=== PATIENT | female | born 1945 | race Caucasian/White ===

== ENCOUNTER 2021-05-30 10:59 | Outpatient (REF) | payer BC, SELFPAY ==
[2021-05-30 14:51] LABS: Influenza A PCR NEGATIVE (Negative); Influenza B PCR NEGATIVE (Negative); Resp Syncy Virus RNA Qual PCR NEGATIVE (Negative); SARS COV2 PCR INHOUSE NEGATIVE (Negative)
== END 2021-05-30 11:00 | disposition home or self-care (01) ==
LOC: HO.LAB 10:59
PROVIDERS: Visit Provider Family Medicine
DX: Z20.822 Contact with and (suspected) exposure to COVID-19 (principal); B34.9 Viral infection, unspecified
CPT/HCPCS: 0241U; 36415

== ENCOUNTER 2025-03-31 08:17 | Outpatient (REF) | payer BC, SELFPAY ==
[2025-03-31 11:26] LABS: Hematocrit 39.9 % (37.0-47.0); Hemoglobin 12.9 g/dl (12.0-16.0); Mean Corpuscular HGB Conc 32.3 g/dl (31.0-35.0); Mean Corpuscular Hemoglobin 30.0 pg (27.0-33.0); Mean Corpuscular Volume 92.8 fL (80.0-98.0); NRBC Abs Auto 0.000 X10*3/uL (0.0-0.012); NRBC Pct Auto 0.0 /100WBC (0.0-0.2); Platelet Count 283 X10*3/uL (160-400); Red Blood Count 4.30 X10*6/uL (4.20-5.50); White Blood Count 5.0 X10*3/uL (4.8-10.8)
[2025-03-31 11:55] LABS: Microalbum/Creatinine Ratio Ur 20.8 ug/mg cr (<30)
[2025-03-31 11:59] LABS: Alanine Aminotransferase 26 U/L (0-31); Albumin Level 4.4 g/dL (3.5-5.0); Alkaline Phosphatase 65 U/L (39-117); Anion Gap 13 (12-20); Aspartate Amino Transferase 31 U/L (5-31); Blood Urea Nitrogen 18 mg/dL (9-16); Calcium 10.1 mg/dL (8.4-10.2); Carbon Dioxide 24 mmol/L (22-29); Chloride 112 mmol/L (96-108); Cholesterol 123 mg/dL (<200); Estimated Glomerular Filt Rate 50; HDL Cholesterol 38 mg/dL (>40); Potassium 3.8 mmol/L (3.3-5.1); Sodium 145 mmol/L (135-145); Total Protein 7.0 g/dL (6.5-8.0); Triglycerides 152 mg/dL (<150)
[2025-03-31 12:26] LABS: Folate 17.5 ng/mL (> or = 4.0); Vitamin B12 990 pg/mL (200-900)
== END 2025-03-31 08:18 | disposition home or self-care (01) ==
LOC: HO.WFDLDS 08:17
PROVIDERS: PCP Nurse Practitioner Family; Visit Provider Nurse Practitioner Family
DX: Z76.89 Persons encountering health services in other specified circumstances (principal); I25.10 Atherosclerotic heart disease of native coronary artery without angina pectoris; I12.9 Hypertensive chronic kidney disease with stage 1 through stage 4 chronic kidney disease, or unspecified chronic kidney disease; N18.31 Chronic kidney disease, stage 3a; H61.23 Impacted cerumen, bilateral; J45.20 Mild intermittent asthma, uncomplicated; E66.9 Obesity, unspecified; K21.9 Gastro-esophageal reflux disease without esophagitis; M54.42 Lumbago with sciatica, left side; M54.41 Lumbago with sciatica, right side; G89.29 Other chronic pain; J06.9 Acute upper respiratory infection, unspecified; Z95.5 Presence of coronary angioplasty implant and graft; Z87.11 Personal history of peptic ulcer disease; Z68.30 Body mass index [BMI] 30.0-30.9, adult
CPT/HCPCS: 36415; 69209; 80053; 80061; 82043; 82306; 82570; 82607; 82746; 84443; 85027; 96127

== ENCOUNTER 2025-03-31 08:17 | Outpatient (AMB) | payer BC, SELFPAY ==
--- NOTE | 2025-03-31 08:19 | MHC.PC.OV ---
Vital Signs 03/31/25 08:29 Height 5 ft 1 in Weight 160 lb 2 oz BMI 30.3 BP 138/72 Blood Pressure Location Rt brachial Position Sitting Respiration 13 Pulse 103 H Pulse Source Pulse Oximeter Temp 97.6 F Temp Source Oral Pulse Oximetry (%) 98 Oxygen Delivery Method Room Air Intake Visit Reasons: BMET EST CARE Intake Note: New patient to establish care. Patient c/o coughing x 1 week. Patient also needs refill on meds. 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 Required: No Allergies No Known Allergies Allergy (Verified 03/31/25 08:47) Medication List - Last Reviewed 03/31/25 by Rich Jameson MA albuterol sulfate 90 mcg/actuation 2 puffs inhalation QID PRN aspirin 81 mg PO DAILY atorvastatin 80 mg PO BEDTIME beclomethasone dipropionate 40 mcg/actuation (Qvar RediHaler) inhalation gabapentin 300 mg PO DAILY lansoprazole 30 mg PO DAILY metoprolol succinate ER 200 mg PO DAILY montelukast 10 mg PO QPM Tobacco use date assessed: 03/31/25 Fall risk assessment: No Falls in past year Last assessed Fall Risk: 03/31/25 Dental Screening Dental Screen Date: 03/31/25 Did you have a dental visit in the last 12 months?: Yes Did you have a dental problem in the last 6 months where you did not have access to dental care?: No Was dental information given to patient?: Patient has dentist HPI HPI Comments History of Present Illness Details 79 y/o f with HLD, asthma, chronic low back pain, CKD3, CAD, GERD, hx of PUD, HTN SurgHx: s/p cardiac stent (Lcx and OM1 2011) , parathyroidectomy, appy, tonsillectomy, jeffrey , bilat cataracts, FHx: Mom stroke; Dad CHF, SocHx: in 2023; lives w/ son Health Maintenance: See scanned preventative medicine assessment with personalized health plan and screening schedule. Colon: declined, last 2017 Mammo DEXA PAP Vaccines: tdap 2019 AAA screen EKG: [place] of Care: Cards Dr [place]ente, annual visits Optho Visual Acuity: Hearing Screening: ACP: Dietary/Nutrition/Exercise Edu provided: Y History of Present Illness The patient is an 79-year-old female presenting to est care, coming from [facility]. Records rec'd and reviewed. URI 1 week, asthma cough, mucous, sore throat w/ painful swallowing throat is now better but cont shake the cough using inhalers short lived relief w/ [employer] for the first few days Denies fever, chills, ear pain. Bilat ears feel blocked. Using debrox. Does her best to care for this at home. Asthma: - Managed with Albuterol and Qvar; exacerbation noted; taking Qvar 1 puff at HS and not bid as it causes drying of her mouth Essential Hypertension: - Controlled with Metoprolol; stable condition Coronary Artery Disease: - Managed post-coronary stenting with Atorvastatin and Aspirin GERD: - Controlled with Lansoprazole; no current issues Obesity: - BMI of 30; stable weight discussed Chronic back and lower ext pain managed on Gabapentin Review of Systems - Respiratory: Reports persistent asthmatic cough, sore throat initially. - Ear/Nose/Throat: Reports sore throat improved; difficulty swallowing initially. - Gastrointestinal: Denies new or worsening GERD symptoms. - Musculoskeletal: Denies new or worsening back pain; reports previous back issues with some radicular pain. - General: Reports recent night sweats, possibly related to fever. Physical Exam General: Well developed, well nourished, in no acute distress. Appears stated age. Obesity with a BMI of 30. Head: Normocephalic, atraumatic. Some ear wax present, will flush out. Eyes: Pupils are equal, round and reactive to light and accommodation. Conjunctivae are clear. Vision grossly normal. Lungs: Clear to auscultation bilaterally. No rales, rhonchi or wheeze noted. Good air flow in all grimes. Cough present. Heart: Regular rate and rhythm. No murmurs, click, rubs or gallops are noted. Musculoskeletal: Joints are nontender, without swelling, redness, or effusions. Pulses: Peripheral pulses are equal and palpable bilaterally. Extremities: No clubbing, cyanosis nor edema is noted. Psych: Mood and affect appropriate. Results Pending Discussion Notes I discussed the management of the patient's persistent cough, likely viral in nature, and offered a low dose of prednisone to help reduce airway inflammation. We reviewed the use of her inhalers and advised increasing the Qvar dosage to two puffs at night to better manage asthma symptoms. Albuterol should be used preemptively before a coughing episode. Discussed the importance of getting the flu vaccine. The patient's cerumen impaction will be flushed today, and her next steps involve checking the labs upon departure. No antibiotics are currently needed as the lungs are clear, and a viral etiology is most likely. We reviewed medication refills, including atorvastatin, which will be managed through [facility]. Follow-up in six to eight weeks for a Medicare wellness visit was scheduled, and the importance of maintaining current cardiac follow-ups was discussed. Emotional support for the loss of her and role of her sons living with her was acknowledged, adjusting socially to changes was explored briefly. Patient was given time to ask questions. All questions were answered to their satisfaction. Assessment and Plan 1. Asthma w/ exacerbation - Start prednisone for viral cough; use Albuterol before coughing 2. Asthma - Increase Qvar to two puffs/night; review inhaler use 3. Essential Hypertension - Continue Metoprolol; stable condition 4. Coronary Artery Disease - Continue Atorvastatin, Aspirin; maintain follow-up 5. GERD - Continue Lansoprazole; effective management 6. Obesity - No new interventions noted 7. Impaction of Cerumen - Flushing today 8. Chronic back pain- cont gabapentin Patient Instructions - Take prednisone each morning with food for 5 days. - Use Albuterol before a cough; not to wait for a coughing fit. - Use two puffs of Qvar at night. 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 - Get a flu shot once fever-free. - Follow up in six weeks for a wellness visit. - See the lab before leaving for blood work today. Consent Patient was informed and verbally consented to the use of an ambient scribe for clinic note documentation during this visit. Total time spent caring for the patient today was 45 minutes. This includes time spent before the visit reviewing the chart, time spent during the visit, and time spent after the visit on documentation, reviewing laboratory results, diagnostic imaging, medications, performing a medically necessary evaluation, counseling on diagnoses, care coordination, ordering appropriate tests, ordering appropriate medications, review of tests performed by other providers, reporting test results with the patient, communication with other healthcare providers. [facility] Medical History Headache Anxiety Spine disorder Arthritis High cholesterol Allergic Sinusitis Asthma Hx of mammogram (~2024) Surgical History H/O parathyroidectomy H/O angioplasty H/O section Hx of cholecystectomy History of appendectomy Hx of tonsillectomy Hx of colonoscopy (~2015) Family History (Updated 03/31/25 @ 09:25 by Rich Jameson MA) Father Asthma Mother Cardiovascular disease Sister Cancer Thyroid disorder Brother Cancer Thyroid disorder Social History (Updated 03/31/25 @ 08:29 by Rich Jameson MA) Household Members: Children Both parents involved: No Caregiver staying overnight: No Housing: House Are you a primary college and career counselor to a significant other at home: No Do you presently have visiting nurse or other home services: No 75 years or older and lives alone: No Alcohol intake: current Alcohol intake frequency: a few times a month Patient Tobacco Use Status: Never used Tobacco e-Cigarette/Vaping Use: Never Used Second Hand Smoke Exposure: No service: No Current occupational status: retired Current occupational exposures/hazards: No Cognitive needs: No Hearing needs: No Vision needs: Yes (implants) Questionnaire PHQ-9 Over the last 2 weeks, how often have you been bothered by any of the following problems? 1. Little interest or pleasure in doing things: more than half the days 2. Feeling down, depressed, or hopeless: not at all 3. Trouble falling or staying asleep, or sleeping too much: not at all 4. Feeling tired or having little energy: several days 5. Poor appetite or overeating: several days 6. Feeling bad about yourself - or that you are a failure or have let yourself or your family down: not at all 7. Trouble concentrating on things, such as reading the newspaper or watching television: not at all 8. Moving or speaking so slowly that other people could have noticed. Or the opposite - being so fidgety or restless that you have been moving around a lot more than usual: not at all 9. Thoughts that you would be better off or of hurting yourself in some way: not at all Total score: 4 Depression Screening Interpretation: Negative Depression Screening Done: Yes 76963 - PHQ-9 Billing: Yes Source: Developed by Drs. Alex Ko, Jo Ortega, Malachi Sanon and colleagues, with an educational lydia from [email or web address]. Thrive Questionnaire Date Thrive assessed: 03/31/25 I am a: Patient What is your living situation today?: I have a steady place to live Within the past 12 months, did the food you bought not last and you didn't have the money to get more?: Never true Within the past 12 months, did you worry whether your food would run out before you got money to buy more?: Never true Do you have trouble paying for medicines?: No Do you have trouble getting transportation to medical appointments?: No Do you have trouble paying your heating and electricity bill?: No Do you have trouble taking care of your child, family member or friend?: No Do you have trouble with day-to-day activities such as bathing, preparing meals, shopping, managing finances, etc.?: No Are you currently unemployed and looking for a job?: No Are you interested in more education?: No Please select the resources that you would like help with: None Currently or been in a relationship where the following occur: No concerns reported THRIVE Score: 0 AUDIT C Alcohol Use Questionnaire (AUDIT-C) 1. How often do you have a drink containing alcohol?: Never 2. How many drinks containing alcohol do you have on a typical day when you are drinking?: 1 or 2 3. How often do you have six or more drinks on one occasion?: Never Total Score: 0 Score Reviewed/Action Taken: Yes TEMITOPE-7 AMB Questionnaire TEMITOPE-7 Date TEMITOPE - 7 assessed: 03/31/25 Feeling nervous, anxious, or on edge: 0 = Not at all Not being able to stop or control worryin = Not at all Worrying too much about different things: 0 = Not at all Trouble relaxin = Not at all Being so restless that it is hard to sit still: 0 = Not at all Becoming easily annoyed or irritable: 0 = Not at all Feeling afraid as if something awful might happen: 0 = Not at all Total TEMITOPE-7 score (0-4 normal; 5-9 mild; 10-14 moderate; 15-21 severe): 0 Source: Developed by Drs. Alex Ko, Jo Ortega, Malachi Sanon and colleagues, with an educational lydia from [email or web address]. TEMITOPE-7 Assessment Billing TEMITOPE-7 Assessment Tool: TEMITOPE-7 Assessment 21005 Physical exam (Primary Care) Vital Signs: Last Vital Signs Temp 97.6 F 03/31/25 08:29 Pulse 103 H 03/31/25 08:29 Resp 13 03/31/25 08:29 BP 138/72 03/31/25 08:29 Pulse Ox 98 03/31/25 08:29 Oxygen Delivery Method Room Air 03/31/25 08:29 BMI result Body Mass Index 30.3 BMI Assessment/Plan discussion: High BMI High, discussed plan: lifestyle Tobacco/Smoking Status: Tobacco use Status Tobacco use date assessed 03/31/25 03/31/25 08:23 Patient Tobacco Use Status Never used Tobacco 03/31/25 08:29 e-Cigarette/Vaping Use Never Used 03/31/25 08:29 PHQ-9: PHQ-9 Score PHQ-9: Total score 4 03/31/25 08:23 Depression Screening Interpretation: Negative Thrive Assessment: Date of Thrive Assessment Date Thrive assessed 03/31/25 03/31/25 08:23 Currently or been in a relationship where the following occur: No concerns reported Office Procedures Cerumen Removal From which ear canal was the cerumen removed: bilateral Removal: irrigation Notes: patient tolerated procedure well, no complications and ear canal clear 80683-Kqo Irrigation/Lavage Coding Level of Care Code New Pt Level 4 (83653) Complex EM visit Add On G2211 Diagnoses Encounter to establish care with new provider Z76.89 Obesity (BMI 30-39.9) E66.9 Coronary artery disease involving [place] coronary artery of [place] heart without angina pectoris I25.10 Associated angina: without angina Coronary Disease-Associated Artery/Lesion type: [place] artery [place] vs. transplanted heart: [place] heart Stage 3a chronic kidney disease N18.31 Chronic kidney disease stage 3 subtype: stage 3a (GFR 45-59) Mild intermittent asthma without complication J45.20 Asthma complication type: uncomplicated Gastroesophageal reflux disease without esophagitis K21.9 Esophagitis presence: without esophagitis History of peptic ulcer disease Z87.11 Primary hypertension I10 Hypertension type: primary hypertension Chronic bilateral low back pain with bilateral sciatica M54.42; M54.41; G89.29 Back pain laterality: bilateral Sciatica laterality: bilateral sciatica Sciatica presence: with sciatica Coronary artery disease status post coronary stent insertion I25.10; Z95.5 Impacted cerumen of both ears H61.23 Viral URI with cough J06.9 CPT Codes Office Procedure - CPT: 60261-Gvs Irrigation/Lavage ([id number]) Additional Codes PHQ-9 - 43001 - PHQ-9 Billing: Yes ([id number]) TEMITOPE-7 Assessment Billing - TEMITOPE-7 Assessment Tool: TEMITOPE-7 Assessment 58861 ([id number]) Assessment & Plan Assessment & Plan (1) Encounter to establish care with new provider: Code(s): Z76.89 - Persons encountering health services in other specified circumstances (2) Obesity (BMI 30-39.9): Code(s): E66.9 - Obesity, unspecified Category: Medical (3) CAD (coronary artery disease): Code(s): I25.10 - Atherosclerotic heart disease of [place] coronary artery without angina pectoris Category: Medical Qualifiers: Associated angina: without angina Coronary Disease-Associated Artery/Lesion type: [place] artery [place] vs. transplanted heart: [place] heart Qualified Code(s): I25.10 - Atherosclerotic heart disease of [place] coronary artery without angina pectoris (4) CKD (chronic kidney disease) stage 3, GFR 30-59 ml/min: Code(s): N18.30 - Chronic kidney disease, stage 3 unspecified Category: Medical Qualifiers: Chronic kidney disease stage 3 subtype: stage 3a (GFR 45-59) Qualified Code(s): N18.31 - Chronic kidney disease, stage 3a (5) Mild intermittent asthma: Code(s): J45.20 - Mild intermittent asthma, uncomplicated Category: Medical Qualifiers: Asthma complication type: uncomplicated Qualified Code(s): J45.20 - Mild intermittent asthma, uncomplicated (6) GERD (gastroesophageal reflux disease): Code(s): K21.9 - Gastro-esophageal reflux disease without esophagitis Category: Medical Qualifiers: Esophagitis presence: without esophagitis Qualified Code(s): K21.9 - Gastro-esophageal reflux disease without esophagitis (7) History of peptic ulcer disease: Code(s): Z87.11 - Personal history of peptic ulcer disease Category: Medical (8) HTN (hypertension): Code(s): I10 - Essential (primary) hypertension Category: Medical Qualifiers: Hypertension type: primary hypertension Qualified Code(s): I10 - Essential (primary) hypertension (9) Chronic low back pain: Code(s): M54.50 - Low back pain, unspecified; G89.29 - Other chronic pain Category: Medical Qualifiers: Back pain laterality: bilateral Sciatica laterality: bilateral sciatica Sciatica presence: with sciatica Qualified Code(s): M54.42 - Lumbago with sciatica, left side; M54.41 - Lumbago with sciatica, right side; G89.29 - Other chronic pain (10) Coronary artery disease status post coronary stent insertion: Comment: s/p cardiac stent (Lcx and OM1 2011) , Code(s): I25.10 - Atherosclerotic heart disease of [place] coronary artery without angina pectoris; Z95.5 - Presence of coronary angioplasty implant and graft Category: Surgical (11) Impacted cerumen of both ears: Code(s): H61.23 - Impacted cerumen, bilateral Category: Medical (12) Viral URI with cough: Code(s): J06.9 - Acute upper respiratory infection, unspecified Plan , Orders: Orders Comprehensive Met. Panel Today I10 - Essential (primary) hypertension, I25.10 - Atherosclerotic heart disease of [place] coronary artery without angina pectoris, N18.30 - Chronic kidney disease, stage 3 unspecified Lipid Panel Today I10 - Essential (primary) hypertension, I25.10 - Atherosclerotic heart disease of [place] coronary artery without angina pectoris, N18.30 - Chronic kidney disease, stage 3 unspecified Complete Blood Count no Diff Today I10 - Essential (primary) hypertension, I25.10 - Atherosclerotic heart disease of [place] coronary artery without angina pectoris, N18.30 - Chronic kidney disease, stage 3 unspecified Microalbumin, Random (w Creat) Today I10 - Essential (primary) hypertension, I25.10 - Atherosclerotic heart disease of [place] coronary artery without angina pectoris, N18.30 - Chronic kidney disease, stage 3 unspecified TSH reflex Free T4 Today I10 - Essential (primary) hypertension, I25.10 - Atherosclerotic heart disease of [place] coronary artery without angina pectoris, N18.30 - Chronic kidney disease, stage 3 unspecified Vitamin B12 and Folate Today I10 - Essential (primary) hypertension, I25.10 - Atherosclerotic heart disease of [place] coronary artery without angina pectoris, N18.30 - Chronic kidney disease, stage 3 unspecified Vitamin D 25-OH Total Today I10 - Essential (primary) hypertension, I25.10 - Atherosclerotic heart disease of [place] coronary artery without angina pectoris, N18.30 - Chronic kidney disease, stage 3 unspecified Medications: New albuterol sulfate 90 mcg/actuation 2 puffs inhalation QID PRN 6.7 grams 1RF wheezing lansoprazole 30 mg PO DAILY 90 caps 2RF beclomethasone dipropionate 40 mcg/actuation (Qvar RediHaler) 2 inhalations inhalation BEDTIME 10.6 grams 12RF atorvastatin 80 mg PO BEDTIME 90 tabs 2RF gabapentin 300 mg PO DAILY 90 caps 2RF metoprolol succinate ER 200 mg PO DAILY 90 tabs 2RF montelukast 10 mg PO QPM 90 tabs 2RF prednisone 5 mg PO DAILY 5 tabs 0RF Patient Instructions: Walk-In Care (Urgent Care): We Make it Easy Walk-in for urgent medical issues such as: ? Seasonal Allergies ? Insect Bites ? Cough ? Diarrhea ? Acute Asthma Attacks ? Back, Knee or Joint Pain ? Ear Infection ? Fever without a Rash ? Headaches ? Nausea ? [place] [facility], Rash or Skin Irritation ? Sore Throat ? Sports Physicals ? Vomiting Most insurances are accepted. Patients do not need to be part of the [facility] to seek care at the walk-in clinic. Locations [address] [place], [place] Open Saturday through Saturday 8am-5pm *Hours may vary due to staffing availability. To confirm Walk-In Care hours please call. [facility] , [place] [address] ? [phone] [facility] Walk-In Care in [place] provides services to ages 18 and over. Open Saturday-Saturday: 7 a.m. to 5 p.m. and Saturday: 9 a.m. to 3 p.m.* *Hours may vary due to staffing availability. To confirm Walk-In Care hours in [place], please call [phone]. [address] [place] [address] ? [phone] [facility] Walk-In Care in [place] provides services to ages 12 and over. Open Saturday-Saturday: 8 a.m. to 5 p.m. Hours may vary due to staffing availability. To confirm Walk-In Care hours in [place], please call [phone]. LABORATORY SERVICES: [facility] Lab ? Primary Location [address] [facility] Saturday through Saturday 6:00 AM ? 5:00 PM Saturday 7:00 AM ? 11:00 AM* [phone] The [facility] Lab is centrally located near the front entrance of the [facility] Center for easy outpatient access. Convenient parking is provided for outpatients. *Hours may vary due to staffing availability. To confirm Laboratory hours for any location, please call [phone]. Offsite Location For your convenience, we offer offsite laboratory draw stations at the following locations: [address] [place] [address] ? [facility] [address], [address] Saturday through Saturday 7:30 AM ? 1:00 PM* [phone] *Hours may vary due to staffing availability. To confirm Laboratory hours for any location, please call [phone]. [place] ? [address] Saturday through Saturday 6:00 AM ? 3:30 PM* Saturday 6:30 AM ? 3 PM* [phone] *Hours may vary due to staffing availability. To confirm Laboratory hours for any location, please call [phone] [place] [address] Saturday through Saturday 7:30 AM ? 4:00 PM* [phone] *Hours may vary due to staffing availability. To confirm Laboratory hours for any location, please call [phone] [place] [address] Saturday through 9:00 AM ? 4:00 PM* *Hours may vary due to staffing availability. To confirm Laboratory hours for any location, please call [phone]. Appointments are not necessary. Walk-ins are welcome. Like all the departments throughout the [facility], our Lab undergoes frequent reviews to ensure the quality and accuracy of test results, and our staff takes special pride in its status as a nationally accredited facility. Patient Portal: [facility] ONE PATIENT. ONE RECORD. BETTER CARE. [facility] has a fully integrated, cutting-edge mobile electronic health information system that has revolutionized the way we care for our patients and manage our organization. This system improves communication and coordination enabling us to provide safe, higher-quality care, and an overall positive experience for staff and patients. Our first priority, as always, is to deliver the highest quality care possible. The system is running in the background supporting that priority. This portal is for all [facility] services and practices. If you are experiencing any technical difficulties with enrolling or logging into the Patient Portal please complete the [facility] Patient Portal Technical Support Form. [facility] now offers a new secure on-line interactive tool for patients to review their health information ? ?Patient Portal. This interactive web portal will enable patients and their families to take an active role in their care by providing easy, secure access to their health information via the internet. The Patient Portal provides patients with instant access to their health information, including laboratory results, medications, allergies, demographic information, visit history, and more. In addition to managing their own care, parents and health care proxies with authorized consent will appreciate the ability to access the records of those individuals for whom they provide care. Please note: if you wish to gain access (Proxy) to another patient?s portal, you will be required to come to the Medical Records Department in person at [facility]. Both the patient giving proxy access and the proxy will need to provide photo identification and complete the appropriate authorization. The Patient Portal also allows track their appointments online. The [facility] Patient Portal also saves patients time by allowing them to submit updates to their demographic and contact information prior to their visits. Portal email notifications will also alert patients to any new activity on their portal, such as test results and new appointments. In order to initially enroll in the [facility] Patient Portal, you will need to enter some required information including the following: your [facility] [facility] Record number your personal home email address name date of Please note: In order to enroll in the [facility] Patient Portal, we need to have your email address on file in your electronic medical record. ?The email address needs to be specific for one person (yourself) in order for your Portal enrollment to be successful. ?You can update your email address in person with our Registration staff when you are registering for a hospital visit. ?Otherwise, you will need to come to the Health Information Management (Medical Records) Department at [facility]. ?We are open from Saturday ? Saturday from 7:30 a.m. ? 4:30 p.m. ?You will be required to present a photo id. Once you have successfully enrolled in the Patient Portal, you will receive a one-time user id and password for the Portal, sent to your email address. ?This will allow you to log into the Patient Portal within 99 hrs and reset your own logon id and password, and define personal security questions. ?Once your permanent login and password have been set, you can log into the [facility] Patient Portal at any time via the blue button above or from the Portal Logon button on any page of the [facility] website. [facility] and [facility] encourage all of our patients to enroll in Patient Portal as it presents a valuable opportunity for patients and their families to actively participate in their care and stay healthy Welcome to [facility]. ?We look forward to working with you.
[2025-03-31 08:29] VITALS: BP 138/72; PULSE 103; RESP 13; TEMP 36.4; O2SAT 98; BMI 30.3
--- OUTSIDE RECORDS SUMMARY | 2025-03-31 08:45 | XMS_ITS | Encounter Summary ---
Author Organization [facility] Address [id number] [place] [id number] Care Team Providers Care Patient Registration Manager Name Role Phone Paulette Mcmullen Primary Care Provider Encounter Details Date Type Department Care Team (Latest Contact Info) Description 03/19/2025 Lab Requisition [facility] - Main Lab [address] [facility] [place] [address] Gualberto Greco MD [address] [address] Encounter for gynecological examination (general) (routine) without abnormal findings Social History Tobacco Use Types Packs/Day Years Used Date Smoking Tobacco: Never Assessed Comments Unknown Sex and Gender Information Value Date Recorded Sex Assigned at Not on file Legal Sex Female 10:52 AM EST Gender Identity Not on file Sexual Orientation Not on file documented as of this encounter Plan of Treatment Pending Results Name Type Priority Associated Diagnoses Date /Time Pap smear Pathology and Cytology Routine Encounter for gynecological examination (general) (routine) without abnormal findings 03/18/2025 12:00 AM EDT documented as of this encounter Visit Diagnoses Diagnosis Encounter for gynecological examination (general) (routine) without abnormal findings documented in this encounter Care Teams Patient Registration Manager Relationship Specialty Start Date End Date Paulette Mcmullen FNP [address] [place] [address] Dr Martin [address] [place] [address] [place] [phone] PCP - General Nurse Practitioner 03/19/25 documented as of this encounter
--- OUTSIDE RECORDS SUMMARY | 2025-03-31 08:45 | XMS_ITS | Clinical Summary ---
Author Organization [address] [facility] Address [address] [place] [address] Phone Care Team Providers Care Manager Nicu Name Role Phone AndrewJimPaulette Shin Primary Care Provider Encounters Date Type Department Care Team Description 03/19/2025 Lab Requisition [facility] - Main Lab [address] [place] [address] Gualberto Greco MD Encounter for gynecological examination (general) (routine) without abnormal findings from Last 3 Months Social History Tobacco Use Types Packs/Day Years Used Date Smoking Tobacco: Never Assessed Comments Unknown Sex and Gender Information Value Date Recorded Sex Assigned at Not on file Legal Sex Female 10:52 AM EST Gender Identity Not on file Sexual Orientation Not on file Plan of Treatment Health Maintenance Due Date Last Done Comments DTaP,Tdap,and Td Vaccines (1 - Tdap) 12/23/1962 Pneumococcal Vaccine: 50+ Ye ars (1 of 1 - PCV) 12/23/1993 Zoster Vaccines (1 of 2) 12/23/1993 RSV Immunization Adult Patie nts (1 - 1-dose 75+ series) 12/23/2018 Depression Screening 07/01/2024 COVID-19 Vaccine (1 - 2023-2 5 season) 2025 Influenza Vaccine (#1) 2025 Falls Risk Assessment 03/19/2025 Osteoporosis Screening (Bone Density Screening) 03/19/2025 Social Influencers of Health Screening 03/19/2025 HIB Vaccines Aged Out No longer eligi ble based on patient's age to complete this topic HPV Vaccines Aged Out No longer eligi ble based on patient's age to complete this topic Hepatitis A Vaccines Aged Out No long er eligible based on patient's age to complete this topic Hepatitis B Vaccines Aged Out No long er eligible based on patient's age to complete this topic IPV Vaccines Aged Out No longer eligi ble based on patient's age to complete this topic MMR Vaccines Aged Out No longer eligi ble based on patient's age to complete this topic Meningococcal ACWY Vaccine Aged Out N o longer eligible based on patient's age to complete this topic Meningococcal B Vaccine Aged Out No l onger eligible based on patient's age to complete this topic RSV Immunization Patients Un ericka 20 months Aged Out No longer eligible b ased on patient's age to complete this topic Varicella Vaccines Aged Out No longer eligible based on patient's age to complete this topic Insurance [facility] Care Teams Manager Nicu Relationship Specialty Start Date End Date Paulette Mcmullen FNP [address] [place] [address] [place] [phone] PCP - General Nurse Practitioner 03/19/25
== END 2025-03-31 09:17 | disposition home or self-care (01) ==
LOC: HO.HMCFM 08:18
PROVIDERS: PCP Nurse Practitioner Family; Visit Provider Nurse Practitioner Family
DX: I12.9 Hypertensive chronic kidney disease with stage 1 through stage 4 chronic kidney disease, or unspecified chronic kidney disease (principal); N18.31 Chronic kidney disease, stage 3a; E66.9 Obesity, unspecified; Z68.30 Body mass index [BMI] 30.0-30.9, adult; I25.10 Atherosclerotic heart disease of native coronary artery without angina pectoris; J45.20 Mild intermittent asthma, uncomplicated; K21.9 Gastro-esophageal reflux disease without esophagitis; Z87.11 Personal history of peptic ulcer disease; M54.42 Lumbago with sciatica, left side; M54.41 Lumbago with sciatica, right side; G89.29 Other chronic pain; H61.23 Impacted cerumen, bilateral

== ENCOUNTER 2025-05-10 09:07 | Outpatient (AMB) | payer BC, SELFPAY ==
--- NOTE | 2025-05-10 09:12 | AM.OFFVISMDC ---
Intake Vital Signs 05/10/25 09:22 05/10/25 09:58 Height 5 ft 1 in Weight 160 lb 8 oz BMI 30.3 BP 148/76 H 138/60 Blood Pressure Location Rt brachial Rt brachial Position Sitting Sitting Respiration 13 Pulse 93 Pulse Source Pulse Oximeter Temp 97.2 F Temp Source Oral Pulse Oximetry (%) 96 Oxygen Delivery Method Room Air Intake Visit Reasons: 6-8 weeks sAWV 30min Intake Note: AWV. Patient c/o itchiness from above the waist Tax Clerk Required: No Allergies No Known Allergies Allergy (Verified 05/10/25 09:13) Medication List - Last Reconciled 05/10/25 by Paulette Mcmullen, [facility]- albuterol sulfate 90 mcg/actuation 2 puffs inhalation QID PRN aspirin 81 mg PO DAILY atorvastatin 80 mg PO BEDTIME beclomethasone dipropionate 40 mcg/actuation (Qvar RediHaler) 2 inhalations inhalation BEDTIME gabapentin 300 mg PO DAILY lansoprazole 30 mg PO DAILY metoprolol succinate ER 200 mg PO DAILY montelukast 10 mg PO QPM Do you need a note to return to daycare/school/sports/work: No HPI HPI Comments History of Present Illness Details Here today for AWV. The Medicare Annual Wellness Visit (AWV) is a yearly appointment with a health professional to identify health risks and help reduce them and to create or update a personalized prevention plan. During a Medicare AWV, health professionals should also review any current opioid prescriptions, detect any cognitive impairment, and establish or update medical and family history. 79 y/o f with HLD, asthma, chronic low back pain, CKD3, CAD, GERD, hx of PUD, HTN, prediabetes SurgHx: s/p cardiac stent (Lcx and OM1 2011) , parathyroidectomy, appy, tonsillectomy, jeffrey , bilat cataracts w lens implants FHx: Mom stroke; Dad CHF, SocHx: in 2023; lives w/ son Health Maintenance: See scanned preventative medicine assessment with personalized health plan and screening schedule. Colon: declined, last 2016 Mammo 12/2024 at [facility], repeat 2025 PAP aged out Vaccines: tdap 2019, FLU 03/2025, UTD on shingles/pneumococcal AAA screen: NA EKG: done today NSR poor R wave progression, small anterior Q waves otherwise wnl. 03/31/25 BUN 18, CR 1.06, EGFR 50, LDL 55, HDL 38 Mcintosh of Care: Cards Dr Puente, annual visits Optho last appt Nov 12 2024; annual visits Dentist Mar [address] Greco 03/18/25 Visual Acuity: last exam in the last year, Nov 04 2024 , annual exams; has implants Hearing Screening: hard of hearing at times; had exam in the past year; cannot afford hearing aides ACP: Has HCP and MOLST at home; she will bring to me . Dietary/Nutrition/Exercise Edu provided: Y During the course of the visit the patient was educated and counseled about appropriate screening and preventative services. Patient instructions were provided to the patient in written or electronic format. I have reviewed and verified the above information. History of Present Illness The patient is an 79-year-old female presenting for an annual Medicare wellness visit and follow-up for asthma symptoms. Asthma: - The patient's Qvar was increased to 2 puffs once per day at her last visit for asthma symptoms. - She reports her breathing is much better after a course of prednisone. - She continues to have some phlegm, which she describes as her new normal , and occasionally causes her to cough. - She is adherent with her inhaler, taking two puffs every night. Postnasal Drip: - The patient reports having phlegm and feeling mucus in the back of her throat. - She describes a sensation of dripping from her nose down her throat. - She uses a saline mist for her nose. 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 Pruritus and Anxiety: - The patient reports generalized itching, which she believes is related to her nerves. - The itching is worse when she is nervous, a feeling that has increased since her and she has had to handle new responsibilities. - Itching occurs on her back and neck, happens most days, and is less frequent when she is preoccupied or calm. - She applies Cortisone 10, which provides relief. - She has been on gabapentin for about seven years for other reasons, but it does not seem to help with these symptoms. - The patient declined a trial of a new medication for anxiety and prefers to monitor her symptoms for now. Prediabetes: - A recent fingerstick and an A1c of 5.7 are indicative of a prediabetic state. - The patient acknowledges that she may have had too much chocolate. Coronary Artery Disease: - The patient has a history of two stents in one coronary artery. - She reports one artery is completely blocked, with collateral circulation having taken over, and another artery is 40% blocked. - She follows with a regulatory consultant, Dr. Christine, annually. Past Medical History - Asthma - Anxiety - Coronary artery disease with one artery 100% occluded and another 40% stenosed. History of two stents. - History of breast cyst, which resolved on follow-up imaging. Family History - Mother had Alzheimer's disease for 10 years. - Several of her mother's siblings also had Alzheimer's disease. Social History - The patient is after being for 56 years and is experiencing grief. - She lives independently and manages her own cooking and finances. - Her son assists with heavy housework like vacuuming due to her bad back. - She drives but reports some difficulty due to her vision. - She denies any tobacco or alcohol use. - Her exercise consists of climbing stairs, as she cannot walk far. - She uses a cane for support when walking and standing. - The patient has a healthcare proxy, which has been updated since her 's . - She has a MOLST form completed and will bring it to the next visit for review. Her wishes are for a trial of CPR wihtout prolonged measures that would cause her to be bedridden or without quality of life. Health Maintenance - Colonoscopy: Last performed in 2016; she was advised she does not need another unless a problem arises. - Mammogram: Performed annually, with the last one in December. A previous mammogram showed a cyst that subsequently resolved on a six-month follow-up ultrasound. - Bone Density Scan: The results of her last scan were good. Her next scan is scheduled for next year (2025). - Vaccinations: Patient is up to date, having received her COVID and flu vaccines last month. - Eye Exam: Last exam was on November 04 of this year; she sees the eye doctor annually. - Hearing Exam: Had a hearing test within the last year with results that were okay, allowing her to manage without hearing aids. - Dental Exam: Last seen in March. - Gynecological Exam: Last seen on March 18. - Cognitive Screening: A brief cognitive screening was performed and was normal (0/28). - Fall Screening: Patient has not fallen in the last year and is not afraid of falling. Review of Systems - HEENT: Reports phlegm, post-nasal drip, and hearing difficulty with soft voices. Denies dizziness. - Respiratory: Reports an occasional cough. Denies difficulty breathing. - Cardiovascular: Denies chest pain. - Dermatologic: Reports generalized pruritus, which is worse with nervousness. - Genitourinary: Reports occasional urinary leakage if she waits too long to urinate. Denies constant incontinence. - Neurological: Reports being a nervous type person. - Musculoskeletal: Reports a bad back. - Constitutional: Denies falls. Physical Exam General: Well developed, well nourished, in no acute distress. Appears stated age. Head: Normocephalic, atraumatic. Eyes: Strabismus, Pupils are equal, round and reactive to light and accommodation. Conjunctivae are clear. Scleras nonicteric bilat. Vision grossly normal. Ears: TMs clear AU, EACS WNL. Nose: Patent, clear discharge. Neck: No carotid bruit bilat. Supple, no adenopathy or thyromegaly. Breast: Edu on SBE. Mammogram last done in December at [facility], with a repeat showing normal results. Lungs: Clear to auscultation bilaterally. No rales, rhonchi or wheeze noted. Good air flow in all grimes. Heart: Regular rate and rhythm. No murmurs, click, rubs or gallops are noted. Abdomen: Bowel sounds present in all quadrants. The abdomen is soft, nontender, with no masses or organomegaly noted. No hernias are noted. : Deferred. 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 Last escrow agent visit was on 03/18/25. Pulses: Peripheral pulses are equal and palpable bilaterally. Extremities: No clubbing, cyanosis nor edema is noted. Patient has skinny ankles. Neurologic: Gait and station normal. Cranial Nerves 2-12 intact. Motor strength grossly symmetrical and intact. No sensory loss. Balance normal. Cognitive screening performed with perfect score. Skin: No rashes, ulcers, or lesions noted. Turgor is good. Skin color is good. Hair and nails are without abnormalities. Psych: Normal eye contact, affect and mood appropriate, and normal interactions. Patient is alert and appropriate to context. Results - Labs: A1c is 5.7%, indicating a prediabetic state. - Tests and Diagnostics: EKG with no acute changes. Medical Decision Making The patient is an 79-year-old female presenting for an annual wellness visit with a few active complaints. Her primary respiratory complaint is phlegm and postnasal drip, which causes an occasional cough. Despite this, her asthma appears well-controlled on her current regimen of Qvar 2 puffs at bedtime, and her lungs were clear on auscultation. Given the symptoms of post-nasal drip and her history of avoiding certain nasal sprays, a trial of Ipratropium nasal spray as needed is a reasonable next step to dry up secretions and reduce her cough, which could prevent triggering her asthma. The patient's complaint of pruritus appears to have a psychogenic component, as she relates it to nervousness and anxiety that has increased since her 's . She declined pharmacologic intervention at this time, preferring to self-monitor, which is an acceptable plan. A discussion was had regarding the potential use of her existing gabapentin on an as-needed basis for severe anxiety, but she opted to defer. Lab work revealed a new diagnosis of prediabetes, with an A1c of 5.7. This will be monitored. Her EKG was without acute changes, and her cholesterol is well-managed, indicating her current cardiovascular regimen is effective. The plan is to coordinate lab draws with her regulatory consultant's follow-up to ensure continuity of care. Preventative health screenings were reviewed and are largely up to date. Cognitive screening was normal. She has a MOLST form which she will provide at her next visit. Follow-up is scheduled in six months. Plan 1. Annual Medicare Wellness Visit - Health maintenance screenings were reviewed; patient is up to date on most screenings. - A brief cognitive screening was performed with normal results. - Advanced care directives were discussed, and the patient will bring her completed MOLST form to the next visit. - Fall risk was assessed as low. 2. Asthma And Postnasal Drip - The patient's lungs are clear on exam. - Continue Qvar 2 puffs at bedtime for asthma maintenance. - Prescribed Ipratropium nasal spray to be used as needed for post-nasal drip to help dry secretions and reduce associated cough. - The patient may continue using saline nasal mist as well. 3. Anxiety And Pruritus - The patient attributes her itching to nervousness, which has worsened since her 's . - She declined to start a new daily or as-needed medication for anxiety at this time. - She will continue to self-monitor her symptoms and their triggers. - She will continue using topical Cortisone 10 as needed for relief. 4. Prediabetes - Patient's A1c of 5.7 indicates prediabetes, and she was counseled on this finding. - The condition will be monitored via labs at her next follow-up. 5. Coronary Artery Disease & Health Maintenance Follow-Up - Today's EKG was normal. - Cholesterol levels are well-controlled with current medication. - Patient to have fasting labs drawn one week prior to her next cardiology appointment. - Will provide prescription orders for her annual mammogram and bone density scan if her escrow agent retires. - Follow up in this office in 6 months. Patient Instructions - Continue taking your Qvar inhaler with two puffs every night to help your breathing. - A prescription for Ipratropium nasal spray has been sent to your pharmacy. Use it as needed to help with the mucus in your throat. - You can keep using the saline nasal mist; it helps to flush things out but will not dry up mucus like the new spray. - For your itching, keep a close eye on what makes it better or worse. For now, you have chosen not to start a new medicine for it. - Your lab tests show your blood sugar is a little high, in the prediabetic range. We will keep an eye on this. - Please schedule a lab appointment to have your blood drawn one week before your next appointment with your heart doctor. You will need to fast for this test. - Please bring your completed pink MOLST (Medical Orders for Life-Sustaining Treatment) form to your next appointment. - Schedule a follow-up visit here in about six months, around November. - If you have any changes in your health, please call the office or send a message through the patient portal. Consent Patient was informed and verbally consented to the use of an ambient scribe for clinic note documentation during this visit. An additional 30 minutes was spent addressing the problem(s) noted at todays visit. This includes time spent before the visit reviewing the chart, time spent during the visit, and time spent after the visit on documentation reviewing laboratory results, diagnostic imaging, medications, performing a medically necessary evaluation, counseling on diagnoses, care coordination, ordering appropriate tests, ordering appropriate medications, review of tests performed by other providers, reporting test results with the patient, communication with other healthcare providers. [facility] Medical History (Updated 05/10/25 @ 12:04 by YANG Rogers) Allergic Anxiety Arthritis Asthma Headache High cholesterol Hx of mammogram (~12/2024) Sinusitis Spine disorder Surgical History (Updated 05/10/25 @ 09:56 by YANG Rogers) H/O angioplasty H/O section H/O parathyroidectomy History of appendectomy Hx of cholecystectomy Hx of colonoscopy (~2016) Hx of tonsillectomy Family History (Updated 03/31/25 @ 09:25 by Rich Jameson MA) Father Asthma Mother Cardiovascular disease Sister Cancer Thyroid disorder Brother Cancer Thyroid disorder Social History (Updated 03/31/25 @ 08:29 by Rich Jameson MA) Household Members: Children Both parents involved: No Caregiver staying overnight: No Housing: House Are you a primary lpn care manager to a significant other at home: No Do you presently have visiting nurse or other home services: No 75 years or older and lives alone: No Alcohol intake: current Alcohol intake frequency: a few times a month Patient Tobacco Use Status: Never used Tobacco e-Cigarette/Vaping Use: Never Used Second Hand Smoke Exposure: No service: No Current occupational status: retired Current occupational exposures/hazards: No Cognitive needs: No Hearing needs: No Vision needs: Yes (implants) Questionnaire Medicare Wellness Checkup What is your age?: 78 or older What gender do you identify with?: female During the past 4 weeks, how much have you been bothered by emotional problems such as feeling anxious, depressed, irritable, sad or downhearted, and blue?: not at all During the past 4 weeks, has your physical & emotional health limited your social activities with family, friends, neighbors, or groups?: not at all During the past 4 weeks, how much bodily pain have you generally had?: no pain During the past 4 weeks, was someone available to help you if you needed & wanted help?: yes, as much as I wanted During the past 4 weeks, what was the hardest physical activity you could do for at least 2 minutes?: light Can you get to places out of walking distance without help? (For eg., can you travel alone on buses, taxis or drive your car?): Yes Can you go shopping for groceries or clothes without someone's help?: Yes Can you prepare your own meals?: Yes Can you do your housework without help?: Yes Because of any health problems, do you need the help of another person with your personal care needs such as eating, bathing, dressing or getting around the house?: No Can you handle your own money without help?: Yes During the past 4 weeks, how would you rate your health in general?: good During the past 4 weeks how have things been going for you?: pretty well Are you having difficulties driving your car?: no Do you always fasten your seat belt when you are in a car?: yes, usually During past 4 weeks, have you been bothered by the following: never: Sexual problems?, Trouble eating well?, Teeth or denture problems?, Problems using the telephone? and Tiredness or fatigue? and seldom: Falling or dizzy when standing up Have you fallen 2 or more times in the past year?: No Are you afraid of falling?: No Are you a smoker?: no During the past 4 weeks, how many drinks of wine, beer, or other alcoholic beverages did you have?: no alcohol at all Do you exercise for about 20 minutes 3 or more times a week?: yes, some of the time Have you been given information to help with the following?: no: Hazards in your house that might hurt you? and no: Keeping track of your medications? How often do you have trouble taking medicines the way you have been told to take them?: I always take medicine as prescribed How confident are you that you can control & manage most of your health problems?: very confident What is your race?: White Activity of Daily Living Bathing - sponge bath, tub bath or shower: receives no assistance (gets in/out by self, if usual bathing means Dressing - getting clothes from closets & drawers, including inner/outer garments & fasteners.: gets clothes & gets completely dressed without help Toileting - going to the 'toilet room' for urine/bowel elimination & cleaning self/arranging clothes: goes to toilet room, cleans self, arranges clothes without help Transfer: moves in & out of bed and chair without help (may use support object) Continence: controls urination/bowel movements completely by self Feeding: feeds self without help Total Score: 0 Information obtained from: patient Using telephone: independent Traveling: independent Shopping: independent Preparing meals: independent Housework: independent Taking medicine: independent Managing money: independent PHQ-9 Over the last 2 weeks, how often have you been bothered by any of the following problems? 1. Little interest or pleasure in doing things: not at all 2. Feeling down, depressed, or hopeless: not at all 3. Trouble falling or staying asleep, or sleeping too much: not at all 4. Feeling tired or having little energy: not at all 5. Poor appetite or overeating: not at all 6. Feeling bad about yourself - or that you are a failure or have let yourself or your family down: not at all 7. Trouble concentrating on things, such as reading the newspaper or watching television: not at all 8. Moving or speaking so slowly that other people could have noticed. Or the opposite - being so fidgety or restless that you have been moving around a lot more than usual: not at all 9. Thoughts that you would be better off or of hurting yourself in some way: not at all Total score: 0 Depression Screening Interpretation: Negative Depression Screening Done: Yes 73699 - PHQ-9 Billing: Yes Source: Developed by Drs. Alex Ko, Jo Ortega, Malachi Sanon and colleagues, with an educational lydia from [employer]. Physical Exam Vital Signs: Last Vital Signs Temp 97.2 F 05/10/25 09:22 Pulse 93 05/10/25 09:22 Resp 13 05/10/25 09:22 BP 138/60 05/10/25 09:58 Pulse Ox 96 05/10/25 09:22 Oxygen Delivery Method Room Air 05/10/25 09:22 BMI result Body Mass Index 30.3 Office Procedures EKG 92288-[id number], Complete Vision Screening Right Eye: 20/30 Left Eye: 20/30 Bilateral: 20/30 Color: Pass Corrected: Pass (contacts) 95466 - Vision Screening Results AMB Hemoglobin A1c AMB Hemoglobin A1c 5.7 % Last Edit by Rich Jameson MA on 05/10/25 09:32 Results Reviewed Results Reviewed: Laboratory Last Values Hgb A1c (Clinic) 5.7 % (4.0-6.0) 05/10/25 09:24 Assessment & Plan Assessment & Plan (1) Encounter for subsequent annual wellness visit (AWV) in Medicare patient: Onset Date: ~05/10/25 Code(s): Z00.00 - Encounter for general adult medical examination without abnormal findings (2) ACP (advance care planning): Onset Date: ~05/10/25 Code(s): Z71.89 - Other specified counseling (3) Physician orders for life-sustaining treatment (POLST) form indicates patient wish for full code resuscitation status: Code(s): Z78.9 - Other specified health status (4) History of bone density study: Onset Date: ~2023 Code(s): Z92.89 - Personal history of other medical treatment (5) Prediabetes: Code(s): R73.03 - Prediabetes (6) Post-nasal drainage: Code(s): R09.82 - Postnasal drip (7) CKD (chronic kidney disease) stage 3, GFR 30-59 ml/min: Code(s): N18.30 - Chronic kidney disease, stage 3 unspecified Qualifiers: Chronic kidney disease stage 3 subtype: stage 3a (GFR 45-59) Qualified Code(s): N18.31 - Chronic kidney disease, stage 3a (8) CAD (coronary artery disease): Code(s): I25.10 - Atherosclerotic heart disease of [place] coronary artery without angina pectoris Qualifiers: Associated angina: without angina Coronary Disease-Associated Artery/Lesion type: [place] artery [place] vs. transplanted heart: [place] heart Qualified Code(s): I25.10 - Atherosclerotic heart disease of [place] coronary artery without angina pectoris (9) HTN (hypertension): Code(s): I10 - Essential (primary) hypertension Qualifiers: Hypertension type: primary hypertension Qualified Code(s): I10 - Essential (primary) hypertension (10) Coronary artery disease status post coronary stent insertion: Comment: s/p cardiac stent (Lcx and OM1 2011) , Code(s): I25.10 - Atherosclerotic heart disease of [place] coronary artery without angina pectoris; Z95.5 - Presence of coronary angioplasty implant and graft (11) TEMITOPE (generalized anxiety disorder): Code(s): F41.1 - Generalized anxiety disorder (12) Chronic pruritus: Code(s): L29.9 - Pruritus, unspecified Plan . Orders: Orders AMB Hemoglobin A1c Today Z13.9 - Encounter for screening, unspecified Hemoglobin A1c 10/29/25 I10 - Essential (primary) hypertension, I25.10 - Atherosclerotic heart disease of [place] coronary artery without angina pectoris, R73.03 - Prediabetes, Z95.5 - Presence of coronary angioplasty implant and graft Comprehensive [place]. Panel Fast 10/29/25 I10 - Essential (primary) hypertension, I25.10 - Atherosclerotic heart disease of [place] coronary artery without angina pectoris, R73.03 - Prediabetes, Z95.5 - Presence of coronary angioplasty implant and graft Lipid Panel 10/29/25 I10 - Essential (primary) hypertension, I25.10 - Atherosclerotic heart disease of [place] coronary artery without angina pectoris, R73.03 - Prediabetes, Z95.5 - Presence of coronary angioplasty implant and graft Medications: New ipratropium bromide administer into each nostril 2 sprays intranasal BID PRN 30 mL 2RF allergy symptoms Discontinued prednisone Discontinued Reason: Patient Completed Course 5 mg PO DAILY 5 tabs 0RF Patient Instructions: Health screenings for women You should visit your health care provider from time to time, even if you are healthy. The purpose of these visits is to: Screen for medical issues Assess your risk for future medical problems Encourage a healthy lifestyle Update vaccinations and other preventive care services Help you get to know your provider in case of an illness Information Even if you feel fine, you should still see your provider for regular checkups. These visits can help you avoid problems in the future. For example, the only way to find out if you have high blood pressure is to have it checked regularly. High blood sugar and high cholesterol levels also may not have any symptoms in the early stages. A simple blood test can check for these conditions. There are specific times when you should see your provider or receive specific health screenings. The [place] Preventive Services Task Force publishes a list of recommended screenings. Below are screening guidelines for women ages 18 to 39. BLOOD PRESSURE SCREENING Your blood pressure should be checked at least once every 3 to 5 years if: Your blood pressure is in the normal range (top number less than 120 mm Hg and bottom number less than 80 mm Hg) You don't have risk factors for high blood pressure Ask your provider if you need your blood pressure checked more often if: The top number is 120 to 129 mm Hg or the bottom number is 70 to 79 mm Hg You have diabetes, heart disease, kidney problems, are overweight, or have certain other health conditions You have a first-degree relative with high blood pressure You are Black You had high blood pressure during a If the top number is 130 mm Hg or greater or the bottom number is 80 mm Hg or greater, this is considered stage 1 hypertension. Schedule an appointment with your provider to learn how you can reduce your blood pressure. Watch for blood pressure screenings in your area. Ask your provider if you can stop in to have your blood pressure checked. BREAST CANCER SCREENING Experts do not agree about the benefits of breast self-exams in finding breast cancer or saving lives. Talk to your provider about what is best for you. A screening mammogram is not recommended for most women under age 40. Your provider may discuss and recommend mammograms, MRI scans, or ultrasounds if you have an increased risk for breast cancer, such as: A mother or sister who had breast cancer at a young age (most often starting screening earlier than the age the close relative was diagnosed) You carry a high-risk genetic marker CERVICAL CANCER SCREENING Cervical cancer screening should start at age 21 years unless your provider advises otherwise. After the first test: Women ages 21 through 29 should have a Pap test every 3 years. Exoprts do not agree on whether HPV testing is recommended for this age group. Women ages 30 through 65 should be screened with either a Pap test every 3 years or the HPV test every 5 years or both tests every 5 years (called cotesting ). Women who have been treated for precancer (cervical dysplasia) should continue to have Pap tests for 20 years after treatment or until age 65, whichever is longer. If you have had your uterus and cervix removed (total hysterectomy), and you have not been diagnosed with cervical cancer or precancer (high grade cervical neoplasia), you do not need cervical cancer screening. CHOLESTEROL SCREENING Cholesterol screening should begin at: Age 45 for women with no known risk factors for coronary heart disease Age 20 for women with known risk factors for coronary heart disease Repeat cholesterol screening should take place: Every 5 years for women with normal cholesterol levels More often if changes occur in lifestyle (including weight gain and diet) More often if you have diabetes, heart disease, kidney problems, or certain other conditions DIABETES SCREENING You should be screened for diabetes starting at age 35 and then repeated every 3 years if you have no risk factors for diabetes. Screening may need to start earlier and be repeated more often if you have other risk factors for diabetes, such as: You have a first degree relative with diabetes. You are overweight or have obesity. You have high blood pressure, prediabetes, or a history of heart disease. Screening for diabetes should be done if you are planning to become and you are overweight and have other risk factors such as high blood pressure. DENTAL EXAM Go to the dentist once or twice every year for an exam and cleaning. Your dentist will evaluate if you need more frequent visits. EYE EXAM Have an eye exam every 5 to 10 years before age 40. If you have vision problems, have an eye exam every 2 years or more often if recommended by your provider. You should have an eye exam that includes an examination of your retina (back of your eye) at least every year if you have diabetes. IMMUNIZATIONS Commonly needed vaccines include: Flu shot: get one every year. COVID-19 vaccine: ask your provider what is best for you. Tetanus-diphtheria and acellular pertussis (Tdap) vaccine: have one at or after age 19 as one of your tetanus-diphtheria vaccines if you did not receive it as an adolescent. Tetanus-diphtheria: have a booster (or Tdap) every 10 years. Varicella vaccine: receive 2 doses if you never had chickenpox or the varicella vaccine. Hepatitis B vaccine: receive 2, 3, or 4 doses, depending on your exact circumstances. Measles, mumps, and rubella (MMR) vaccine: receive 1 to 2 doses if you are not already immune to MMR. Your provider can tell you if you are immune. Ask your provider about the human papillomavirus (HPV) vaccine if: You have not received the HPV vaccine in the past You have not completed the full vaccine series (you should catch up on this shot) Ask your provider if you should receive other immunizations if you have certain health problems that increase your risk for some diseases such as pneumonia. INFECTIOUS DISEASE SCREENING Women who are sexually active should be screened for chlamydia and gonorrhea up until age 25. Women 25 years and older should be screened for chlamydia and gonorrhea if at high risk. Screening for hepatitis C: All adults ages 18 to 79 should get a one-time test for hepatitis C. people should be screened at every . Screening for human immunodeficiency virus (HIV): All people ages 15 to 65 should get a one-time test for HIV. Depending on your lifestyle and medical history, you may also need to be screened for infections such as syphilis and HIV, as well as other infections. PHYSICAL EXAM All adults should visit their provider from time to time, even if they are healthy. The purpose of these visits is to: Screen for disease Assess your risk of future medical problems Encourage a healthy lifestyle Update your vaccinations and other preventive care services Maintain a relationship with a provider in case of an illness Your height, weight, and BMI should be checked at every exam. During your exam, your provider may ask you about: Depression and anxiety Diet and exercise Alcohol and tobacco use Safety issues, such as using seat belts, smoke detectors, and intimate partner violence Your medicines and risk for interactions SKIN SELF-EXAM Your provider may check your skin for signs of skin cancer, especially if you're at high risk, such as if you: Have had skin cancer before Have close relatives with skin cancer Have a weakened immune system OTHER SCREENING Talk with your provider about colon cancer screening if you have a strong family history of colon cancer or polyps, or if you have had inflammatory bowel disease or polyps yourself. Routine bone density screening of women under 40 is not recommended. Quality Reporting (2019) Adult ([facility] 138/08/22/68) Smoking risk assessment performed?: Yes Patient Tobacco Use Status: Never used Tobacco Depression screening performed: Yes Screen Results: Yes Negative screen Systolic BP not done?: No Diastolic BP not done?: No BMI screening not done: No Sexual Activity Screening ([facility] 153) Sexually active?: No Immunizations ([facility] 147, 117) Annual Influenza Vaccine: Yes Measles Antibody Test: No Mumps Antibody Test: No Rubella Antibody Test: No Varicella Antibody Test: No Anti Hepatitis A IgG Antigen test: No Anti Hepatitis B Virus Surface Ab test: No Fall Risk Screening ([facility] 139) Last assessed Fall Risk: 05/10/25 Fall risk assessment: No Falls in past year Dementia Assessment ([facility] 149) Cognitive assessment recorded: Yes (0/28 on 6 CIT ) Assessment of cognition with standardized tool: Yes Depression/Bipolar (159/160/161/177) PHQ-9: Total score: 0 Ophthalmol:Cataracts Visual Acuity (133) Visual acuity exam performed: Yes (see results) Coding Level of Care Code Medicare Subsequent (G0439) Est Pt Level 4 (56835) Diagnoses Encounter for subsequent annual wellness visit (AWV) in Medicare patient Z00.00 ACP (advance care planning) Z71.89 Physician orders for life-sustaining treatment (POLST) form indicates patient wish for full code resuscitation status Z78.9 History of bone density study Z92.89 Prediabetes R73.03 Post-nasal drainage R09.82 Stage 3a chronic kidney disease N18.31 Chronic kidney disease stage 3 subtype: stage 3a (GFR 45-59) Coronary artery disease involving [place] coronary artery of [place] heart without angina pectoris I25.10 Associated angina: without angina Coronary Disease-Associated Artery/Lesion type: [place] artery [place] vs. 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
[2025-05-10 09:22] VITALS: BP 148/76; PULSE 93; RESP 13; TEMP 36.2; O2SAT 96; BMI 30.3
--- OUTSIDE RECORDS SUMMARY | 2025-05-10 09:51 | XMS_ITS | Encounter Summary ---
Author Organization [facility] Address [address] [place] [address] Care Team Providers Care Bandsaw Operator Name Role Phone AndrewPaulette Townsend LETTY Primary Care Provider Encounter Details Date Type Department Care Team (Latest Contact Info) Description 03/19/2025 Lab Requisition [facility] [address] [facility] [employer] [place] [address] Gualberto Greco MD [address] [address] Encounter for gynecological examination (general) (routine) without abnormal findings Social History Tobacco Use Types Packs/Day Years Used Date Smoking Tobacco: Never Assessed Comments Unknown Sex and Gender Information Value Date Recorded Sex Assigned at Not on file Legal Sex Female 10:52 AM EST Gender Identity Not on file Sexual Orientation Not on file documented as of this encounter Plan of Treatment Not on file documented as of this encounter Procedures Procedure Name Priority Date/Time Associated Diagnosis Comments PAP SMEAR Routine 03/18/2025 12:00 AM EDT Encounter for gynecological examination (general) (routine) without abnormal findings documented in this encounter Results * Pap smear (03/18/2025 12:00 AM EDT) Interpretation Negative for intraepithelial lesion or malignancy 04/01/2025 6:35 PM EDT [facility] at 1835 EDT General Categorization Negative 04/01/2025 6:35 PM T [facility] Specimen Adequacy Satisfactory for evaluation 04/01/2025 6:35 PM EDT [facility] Pap Methodology Liquid Based Pap Test 04/01/2025 6:35 PM EDT [facility] Disclaimer The Pap test is a screening test which carries an inherent false negative rate. These test results should be correlated with the patient's clinical findings and history. This Pap test was processed using an automated screening system. Technical cytopathology services provided by [facility], at [address] [place] [address] (CLIA # [id number]/Jesus Ontiveros MD, Wind Energy Mechanic.) 04/01/2025 6:35 PM EDT [facility] Console Pap Interpretation Reported 04/01/2025 6:35 PM EDT [facility] Brushing/Spatula Cervix uteri structure / Unknown 03/18/2025 03/19/2025 6:25 AM EDT us Gualberto Greco MD LAB CYTOLOGY ORDERABLES Final Result [facility] [address] [place] [address], documented in this encounter Visit Diagnoses Diagnosis Encounter for gynecological examination (general) (routine) without abnormal findings documented in this encounter Care Teams Bandsaw Operator Relationship Specialty Start Date End Date Paulette Mcmullen FNP [address] [place] [address] [place] [address] PCP - General Nurse Practitioner 03/19/25 documented as of this encounter
--- OUTSIDE RECORDS SUMMARY | 2025-05-10 09:51 | XMS_ITS | Clinical Summary ---
Author Organization 299 [facility] Address [address] [place] [address] Phone Care Team Providers Care Reception Manager Name Role Phone AndrewJimPaulette Shin Primary Care Provider Encounters Date Type Department Care Team Description 03/19/2025 Lab Requisition [facility] [address] [place] [address] Gualberto Greco MD Encounter for [...] on patient's age to complete this topic Procedures Procedure Name Priority Date/Time Associated Diagnosis Comments PAP SMEAR Routine 03/18/2025 12:00 AM EDT Encounter for gynecological examination (general) (routine) without abnormal findings from Last 3 Months Results * Pap smear (03/18/2025 12:00 AM EDT) Interpretation Negative for intraepithelial lesion or malignancy 04/01/2025 6:35 PM [facility] at 1835 EDT General Categorization Negative 04/01/2025 6:35 PM [facility] Specimen Adequacy Satisfactory for evaluation 04/01/2025 6:35 PM [facility] Pap Methodology Liquid Based Pap Test 04/01/2025 6:35 PM [facility] Disclaimer The Pap test is a screening test which carries an inherent false negative rate. These test results should be correlated with the patient's clinical findings and history. This Pap test was processed using an automated screening system. Technical cytopathology services provided by [facility], at [address] [place] [address], [place] [address] (CLIA # [id number]/Jesus Ontiveros MD, Social Work Faculty Member.) 04/01/2025 6:35 PM [facility] Console Pap Interpretation Reported 04/01/2025 6:35 PM EDT [facility] Brushing/Spatula Cervix uteri structure / Unknown 03/18/2025 03/19/2025 6:25 AM EDT us Gualberto Greco MD LAB CYTOLOGY ORDERABLES Final Result [facility] [address] [place] [address], [place] [phone] from Last 3 Months Insurance [facility] Care Teams Reception Manager Relationship Specialty Start Date End Date Paulette Mcmullen FNP [address] [place] [address] [place] [address] PCP - General Nurse Practitioner 03/19/25
[2025-05-10 09:58] VITALS: BP 138/60
== END 2025-05-10 10:12 | disposition home or self-care (01) ==
LOC: HO.HMCFM 09:08
PROVIDERS: PCP Nurse Practitioner Family; Visit Provider Nurse Practitioner Family
DX: Z00.00 Encounter for general adult medical examination without abnormal findings (principal); I25.10 Atherosclerotic heart disease of native coronary artery without angina pectoris; N18.31 Chronic kidney disease, stage 3a; I10 Essential (primary) hypertension; R73.03 Prediabetes; R09.82 Postnasal drip; F41.1 Generalized anxiety disorder; L29.9 Pruritus, unspecified; Z78.9 Other specified health status; Z71.89 Other specified counseling; Z13.9 Encounter for screening, unspecified; Z95.5 Presence of coronary angioplasty implant and graft

== ENCOUNTER → 2025-05-10 09:07 | Outpatient (BNVA) | payer BC, SELFPAY | PROVIDERS: PCP Nurse Practitioner Family; Visit Provider Nurse Practitioner Family | DX: Z00.00 Encounter for general adult medical examination without abnormal findings (principal); Z71.89 Other specified counseling; Z78.9 Other specified health status; R73.03 Prediabetes; R09.82 Postnasal drip; N18.31 Chronic kidney disease, stage 3a; I25.10 Atherosclerotic heart disease of native coronary artery without angina pectoris; I10 Essential (primary) hypertension; F41.1 Generalized anxiety disorder; L29.9 Pruritus, unspecified; Z92.89 Personal history of other medical treatment; Z95.5 Presence of coronary angioplasty implant and graft | CPT/HCPCS: 83036; 96127 ==